=== PATIENT | male | born 1965 | race Caucasian/White ===

== ENCOUNTER 2018-08-15 22:49 | Emergency (ER) | payer SELFPAY ==
[~2018-08-15] VITALS: Ht 180.3 cm; Wt 86.2 kg
[2018-08-15 23:15] VITALS: BP 131/77
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
[2018-08-15] MEDS ORDERED: Lidocaine 1% MPF 10mg/ml 5ml INJ ONE (23:30)
[2018-08-15] MEDS ORDERED: oxyCODONE HCL/Acetaminophen 5/325mg PO ONE (23:30)
[2018-08-15] MEDS ORDERED: Neosporin Oint Ud Pkt TOP ONE (23:30)
[2018-08-15] MEDS ORDERED: Tetanus/Diptheria/Pertussis IM ONE (23:30)
--- NOTE | 2018-08-15 23:34 | NUR ---
ED Nurse Note: Pain meds and Tetanus given as ordered.
[2018-08-16] MEDS ORDERED: Bacitracin Oint UD TOPIC ONE (00:52)
[2018-08-16] MEDS ORDERED: IBUPROFEN600 MG ORAL (00:58)
[2018-08-16] MEDS ORDERED: NORCO 5-325 TA1 EACH ORAL (00:58)
[2018-08-16] MEDS ORDERED: BACITRACIN15 GM TOPIC (00:58)
[2018-08-16 02:20] VITALS: BP 128/67
--- NOTE | 2018-08-16 02:21 | NUR ---
ED Nurse Note: pt cleared to be d/c per ERMD, pt discharge and aftercare instruction provided w/ prescription, pt education done via discussion and handout, pt advised to follow up with technology infusion specialist or return to ed if changes in condition, pt vss, ambulatory w/ steady gait, left w/ all belongings. pt states he is going to take lyft back home.
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
== END 2018-08-16 02:20 | disposition home or self-care (01) ==
LOC: EMR 23:42
DX: S81.811A Laceration without foreign body, right lower leg, initial encounter (principal); S82.891A Other fracture of right lower leg, initial encounter for closed fracture; S80.811A Abrasion, right lower leg, initial encounter; W05.1XXA Fall from non-moving nonmotorized scooter, initial encounter; Y92.9 Unspecified place or not applicable; Z23 Encounter for immunization
CPT/HCPCS: 29515; 90471; 90715; 99283